=== PATIENT | female | born 1940 | race Caucasian/White ===

== ENCOUNTER 2024-11-19 19:30 | Emergency (ER) | payer OTHER, SELFPAY ==
[2024-11-19 19:38] VITALS: BP 176/95
[2024-11-19 19:57] LABS: Hematocrit 40.2 % (37.0-47.0); Hemoglobin 13.1 g/dL (12.0-16.0); Mean Corp Hgb Conc. 32.6 g/dL (33.0-37.0); Mean Corpuscular Volume 91.8 fL (81.0-99.0); Nucleated Red Blood Cells % 0 %; Platelet Count 230 10^3/uL (130-400); Red Cell Dist. Width 13.8 % (11.5-14.5)
[2024-11-19 20:17] LABS: ALT (SGPT) 25 U/L (0-35); AST (SGOT) 41 U/L (14-36); Albumin 4.6 g/dl (3.5-5.0); Alkaline Phosphatase 60 U/L (38-126); Blood Urea Nitrogen 20 mg/dl (7-17); Calcium 9.6 mg/dl (8.4-10.2); Carbon Dioxide 28 mmol/L (22-30); Chloride 100 mmol/L (98-107); Glucose 124 mg/dl (70-99); Potassium 4.2 mmol/L (3.5-5.1); Sodium 135 mmol/L (135-145); Total Protein 7.8 g/dl (6.3-8.2); eGFR > 60.00
[2024-11-19 22:17] VITALS: BP 150/76
[2024-11-19 23:00] VITALS: BP 148/64
[2024-11-20] VITALS: BP 140/75
--- NOTE | 2024-11-20 00:10 | ED.CVA ---
History of Present Illness
General
Chief Complaint: CVA/TIA Symptoms
Source: patient
Exam Limitations: none
Time Seen by Provider: 11/19/24 21:56
Nursing documentation reviewed up to this point in time: agreed with
Onset of Stroke Symptoms
Onset of symptoms known: Yes
Date of onset of symptoms: 11/19/24
History of Present Illness
History of Present Illness:
Note:
CHIEF COMPLAINT(S)
Tingling in the left hand and a funny feeling in the mouth.
HISTORY OF PRESENT ILLNESS
The patient is an 84-year-old female who presents with tingling in her left hand and an unusual sensation in her mouth. These symptoms began between 6:30 and 7:00 PM while she was watching television after dinner. She mentioned consuming a small
amount of wine during dinner, which she usually has with her meals. Concerned about the tingling, she took a couple of baby aspirin. Her son, a neurologist specializing in strokes, advised her to call 911. The patient was taken by ambulance to the
emergency department. She reported that her symptoms began to resolve while in the ambulance without any specific interventions. She denies any speech problems, weakness, blurred vision, headache, visual issues, or difficulties with walking or
talking. The symptoms largely subsided by the time she was in the ambulance.
PAST MEDICAL AND SURGICAL HISTORY
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 She believes it resulted from wearing tight dog leashes.
SOCIAL DETERMINANTS AFFECTING HEALTH
The patient reports she consumed a small amount of wine during dinner. She has a history of dog rescue ownership in her home.
PHYSICAL EXAM
General: Alert, no acute distress.
Skin: Warm, dry.
Head: Normocephalic, atraumatic, presence of a ganglion cyst or lipoma noted.
Neck: Supple, trachea midline.
Eye, Ears, Nose, Mouth, and Throat: Oral mucosa moist.
Cardiovascular: Normal peripheral perfusion, no edema.
Respiratory: Respirations are non-labored.
Gastrointestinal: Abdomen nondistended.
Back: Normal range of motion, normal alignment.
Musculoskeletal: Normal range of motion, normal strength.
Neurological: Alert and oriented to person, place, time, and situation. No focal neurological deficit observed.
Psychiatric: Cooperative, appropriate mood & affect.
PLAN
The plan includes sending the patient back for a different type of computed tomography (CT) scan focusing on the vascularity of the brain, which utilizes the same machine and process as the initial CT scan.
DIFFERENTIAL DIAGNOSIS
The Differential Diagnosis includes, in no particular order and is not limited to:
1. Transient Ischemic Attack (TIA)
2. Stroke
3. Seizure
4. Peripheral Neuropathy
5. Carpal Tunnel Syndrome
6. Alcohol-related complications
7. Anxiety-induced symptoms
8. Medication side effects
9. Vestibular disorders
10. Cervical Radiculopathy
NIHSS:
Result Summary
0 points undefined
Inputs:
1A: Level of consciousness -> 0 = Alert; keenly responsive
1B: Ask month and age -> 0 = Both questions right
'Blink eyes' & 'squeeze hands' -> 0 = Performs both tasks
2: Horizontal extraocular movements -> 0 = Normal
3: Visual malin -> 0 = No visual loss
4: Facial palsy -> 0 = Normal symmetry
5A: Left arm motor drift -> 0 = No drift for 10 seconds
5B: Right arm motor drift -> 0 = No drift for 10 seconds
6A: Left leg motor drift -> 0 = No drift for 5 seconds
6B: Right leg motor drift -> 0 = No drift for 5 seconds
7: Limb ataxia -> 0 = No ataxia
8: Sensation -> 0 = Normal; no sensory loss
9: Language/aphasia -> 0 = Normal
10: Dysarthria -> 0 = Normal
11: Extinction/inattention -> 0 = Normal
CARE-UPDATE
11/20/24 - 00:08
Patient reports understanding the need to monitor for symptoms such as tingling in the hands, feet, and mouth as potential calcium-related issues. Blood calcium levels were reviewed and are currently normal. The patient is advised to follow up with
neurology for further evaluation of paresthesias. Recommended to consult Dr. Bustamante, a neurologist available locally. The patient declined admission and opted for outpatient follow-up. Discharge instructions will include details of the neurology
referral.
Disposition:
SUMMARY OF ENCOUNTER
The patient is an 84-year-old female who presented to the emergency department with self-limited tingling in her left hand and an unusual feeling in her mouth. These symptoms resolved by the time she arrived at the emergency department. A CT scan of
the head and neck was performed, both of which returned negative results. She was concerned about her calcium levels, which were reviewed and found to be normal at 9.6 mg/dL. The patient exhibited slight dehydration but was tolerating liquids well
in the emergency department.
DISPOSITION
The patient opted for discharge to home and will follow up with neurology for further evaluation of paresthesias.
INDEPENDENT REVIEW OF LABS AND INTERPRETATION OF TESTS
My independent review of calcium levels shows a normal result of 9.6 mg/dL.
MEDICAL DECISION MAKING
-Complexity of Data Reviewed: Chronic conditions affecting care include a possible ganglion cyst or lipoma on the right wrist present for approximately 25 years. Differential diagnosis includes Transient Ischemic Attack (TIA), Stroke, Seizure,
Peripheral Neuropathy, Carpal Tunnel Syndrome, Alcohol-related complications, Anxiety-induced symptoms, Medication side effects, Vestibular disorders, and Cervical Radiculopathy.
-Data:
Category 1
The patient�s CT scans of the head and neck were independently reviewed and interpreted as negative.
Category 2
No involvement of an independent historian was necessary.
-Risk:
Consideration of Admission/Observation: Escalation of care, including admission/observation, was considered given the complexity and risk of the patients presenting complaint, exam findings, and/or their underlying comorbidities. However,
ultimately, I feel the patient is safe for outpatient management with close follow-up. Reasoning: Patient refused admission. Work-up is reassuring and does not reveal any acute life/organ-threatening processes, the patients symptoms are
well-controlled upon reevaluation, reexamination is reassuring, vitals are stable, the patient agrees with discharge, and is reliable for follow-up.
DIAGNOSIS
Paresthesias (ICD-10: R20.2)
Past History
Past History
ED Past Medical History: HTN
Social History
Tobacco: Non-smoker
Alcohol: Daily (one [place] nightly)
Phy Exam
Physical Exam
Physical Exam:
.
Course
Orders/Labs/Results
Orders:
Orders
11/19/24 19:42
Electrocardiogram (*1) Urgent
Reason for Study: Other
Other Reason for Exam: Possible Stroke
CT Head W/o Iv Contrast Urgent
Comment:
Reason For Exam: numbness
EKG- Treatment ONCE
11/19/24 19:48
Complete Blood Count/With Diff Urgent
Comprehensive Metabolic Panel Urgent
11/19/24 23:03
CT Head & Neck Angio W/wo IV Urgent
Comment:
Reason For Exam: speech difficulty, paresthesias
Abnormal Lab Results
11/19/24
19:48
MCHC 32.6 L g/dL
(33.0-37.0)
BUN 20 H mg/dl
(7-17)
Glucose 124 H mg/dl
(70-99)
AST 41 H U/L
(14-36)
11/19/24 19:48
11/19/24 19:48
Vital Signs
Initial and Last Documented VS:
Initial Vital Signs
Temp Pulse Resp BP Pulse Ox
97.6 F 83 18 176/95 98
11/19/24 19:38 11/19/24 19:38 11/19/24 19:38 11/19/24 19:38 11/19/24 19:38
Last Documented Vital Signs
Temp Pulse Resp BP Pulse Ox
97.6 F 84 18 148/64 97
11/19/24 19:38 11/19/24 22:17 11/19/24 22:17 11/19/24 23:00 11/19/24 23:00
*Pulse Oximetry
SaO2: 97
Oxygen Mode of Delivery: Room air
Patient hypoxic: no
*Critical Care Note
Total Time (30-74mins, 75-104mins- exclusive of procedures): Not Applicable
Update Note
Update Note:
TNKase not warranted. Patient had NIHSS of 0. All symptoms had resolved.
ED Attending Note
-
Portions of this chart may have been created with voice recognition software.� Occasional wrong word or��sound alike� substitutions may have occurred due to the inherent limitations of voice recognition software.
Discharge Plan
Departure
Patient Disposition: Home (Routine Discharge)
Date of Disposition: 11/20/24
Time of Disposition: 00:13
Patient with high blood pressure during this ER visit?: Yes
Condition: Good
Discharge Problem:
Paresthesia
Instructions: Paresthesia (DC)
Prescriptions:
No Action
A Water Pill
5 mg PO DAILY
conj estrog-medroxyprogest felicita [Prempro] 1 EACH tablet
1 tab PO DAILY
Diclofenac
1 tab PO DAILY
Losartan
100 mg PO DAILY
Referrals:
Joe Bustamante MD [Active, Neurology]
Luciano Nance PA-C [Family Provider, Family Practice]
Activity Restrictions/Additional Instructions:
Thank You for choosing [facility].
It was a pleasure meeting you and taking part in your care. We hope for your continued healing and wellness.
Please read discharge instructions in their entirety. However, they are for general education and may not describe your exact diagnosis at discharge. Information on your ER visit and medical conditions were discussed with you along with appropriate
follow up information...
If indicated, please take your medications as instructed and indicated on discharge paperwork.
Please schedule a follow up appointment as directed. Call to schedule an appointment
Please return to the emergency department with ANY change in, persisting, or worsening of symptoms. If any of your symptoms do not improve, or persist, or become more severe within 6-12 hours, please return to the emergency department for further
care.
Please return to the emergency department if you develop a headache, neck pain/stiffness, fever greater than 100.4F, chest pain, shortness of breath, persistent nausea, vomiting, slurred speech, difficulty walking, numbness/tingling, weakness, signs
of infection or any other symptoms that are worrisome to you.
If you have any questions or concerns please do not hesitate to call the Hospital at .
Interventions
Interventions:
*Risk Screen - Suicide Last Done: 11/19/24 19:38
*General Assessment Last Done: 11/19/24 19:38
*Neglect/Abuse Screening Last Done: 11/19/24 19:41
*ED- Fall Risk Assessment Last Done: 11/19/24 19:38
*ED COVID-19 Vaccine History Last Done: 11/19/24 22:15
*ED Influenza Vaccine History Last Done: 11/19/24 22:15
ED- Pulmonary Assessment Last Done: 11/19/24 22:03
ED- Neurological Assessment Last Done: 11/19/24 22:07
ED- Cardiac Assessment Last Done: 11/19/24 22:03
ED Swallowing Screen Last Done: 11/19/24 22:15
Discharge Date and Time
Print Language: RWANDAN
== END 2024-11-20 00:35 | disposition home or self-care (01) ==
LOC: EMR 19:30
PROVIDERS: Emergency Medicine; EMERGENCY PHYSICIAN Student in an Organized Health Care Education/Training Program; FAMILY PHYSICIAN Physician Assistant Medical
DX: R20.2 Paresthesia of skin (principal); I10 Essential (primary) hypertension; E04.1 Nontoxic single thyroid nodule
CPT/HCPCS: 99284; 70450; 70496; 70498; 80053; 85025; 93005; Q9967